=== PATIENT | female | born 1955 | race Caucasian/White ===

== ENCOUNTER 2019-03-06 17:25 | Emergency (ER) | payer OTHER ==
[2019-03-06 17:36] VITALS: BP 153/95
--- NOTE | 2019-03-06 17:53 | UC ---
Eye Complaint HPI - HPI Summary HPI Summary: 63-year-old woman comes in with a chief complaint of left eye irritation for 3 days. Patient's had some redness and discharge from the left eye for 3 days. Gradually gotten worse and now she is having pain on the left side of her face and a headache. Patient does feel mildly ill. Denies any rhinorrhea. - History of Current Complaint Chief Complaint: UCEye Stated Complaint: EYE COMPLAINT Time Seen by Provider: 03/06/19 17:41 Pain Intensity: 4 - Allergies/Home Medications Allergies/Adverse Reactions: Allergies Allergy/AdvReac Type Severity Reaction Status Date / Time Penicillins Allergy Rash Verified 03/06/19 17:37 PMH/Surg Hx/FS Hx/Imm Hx Previously Healthy: Yes - Surgical History Surgical History: Yes Surgery Procedure, Year, and Place: appy - Family History Known Family History: Positive: Non-Contributory - Social History Alcohol Use: Daily Substance Use Type: None Smoking Status (MU): Never Smoked Tobacco Review of Systems All Other Systems Reviewed And Are Negative: Yes Constitutional: Positive: Other - SEE HPI Skin: Positive: Other - SEE HPI Eyes: Positive: Other - SEE HPI ENT: Negative: Nasal Discharge Respiratory: Positive: Negative Cardiovascular: Positive: Negative Gastrointestinal: Positive: Negative Motor: Positive: Negative Neurovascular: Positive: Negative Musculoskeletal: Positive: Negative Neurological: Positive: Headache Psychological: Positive: Negative Is Patient Immunocompromised?: No Physical Exam Triage Information Reviewed: Yes Appearance: Well-Appearing, No Pain Distress, Well-Nourished Vital Signs: Initial Vital Signs Temp 99.4 F 03/06/19 17:31 Pulse 95 03/06/19 17:31 Resp 16 03/06/19 17:31 BP 153/95 03/06/19 17:31 Pulse Ox 99 03/06/19 17:31 Vital Signs Reviewed: Yes Eyes: Positive: Discharge, Other: - Left upper eyelid is swollen and mildly erythematous. PERRLA/EOMI, there is some tenderness to palpation over the maxillary sinus. ENT: Positive: Pharynx normal, TMs normal. Negative: Pharyngeal erythema, Nasal congestion Neck: Positive: Supple Respiratory: Positive: Lungs clear, Normal breath sounds, No respiratory distress Cardiovascular: Positive: RRR Musculoskeletal Exam: Normal Musculoskeletal: Positive: Strength Intact, ROM Intact Neurological: Positive: Alert, Muscle Tone Normal Psychological Exam: Normal Psychological: Positive: Age Appropriate Behavior Skin: Positive: Other - Mild erythema of the left upper eyelid Eye Complaint Course/Dx - Course Course Of Treatment: Go to treat the left upper eyelid stye with antibiotic drops and warm compresses. There is some redness in the upper eyelid and with the patient complaining of a headache and fullness of the left side of the head going to treat with doxycycline for possible cellulitis. At this time the patient does not have a fever and vital signs are stable. I did let her know that if she worsens she needs to get evaluation emergency department as infections around the eye can track into the brain. This was all discussed with the patient. - Differential Dx/Diagnosis Provider Diagnosis: Hordeolum of left eye, Conjunctivitis Discharge - Sign-Out/Discharge Documenting (check all that apply): Patient Departure All imaging exams completed and their final reports reviewed: No Studies - Discharge Plan Condition: Stable Disposition: HOME Prescriptions: DOXYcycline CAP(*) [DOXYcycline 100MG CAP(*)] 100 mg PO BID #20 cap Tobramycin 0.3% OPHTH.JOSE ALFREDO* 1 drop LEFT EYE Q4H #1 btl Patient Education Materials: Stye (ED), Orbital Cellulitis (ED), Conjunctivitis (ED) Referrals: Shahida Ulrich MD [Primary Care Provider] - Additional Instructions: FOLLOW UP WITH YOUR DOCTOR IF NOT COMPLETELY IMPROVED. GO TO THE EMERGENCY DEPARTMENT IF YOUR CONDITION WORSENS; PAIN, FEVER, YOU FEEL ILL OR ANY QUESTIONS OR CONCERNS. - Billing Disposition and Condition Condition: STABLE Disposition: Home
== END 2019-03-06 18:09 | disposition home or self-care (01) ==
LOC: UCEAST 17:25
DX: H00.014 Hordeolum externum left upper eyelid (principal); H10.9 Unspecified conjunctivitis; Z88.0 Allergy status to penicillin
CPT/HCPCS: 99212; G0463

== ENCOUNTER 2023-08-08 07:27 | Observation (INO) ==
[2023-08-08 07:56] LABS: ABS Basophils 0.1 10^3/uL (0.0-0.1); ABS Eosinophils 0.7 10^3/uL (0.0-0.5); ABS Lymphocytes 2.1 10^3/uL (1.0-4.8); ABS Monocytes 0.4 10^3/uL (0.0-0.9); ABS Neutrophils 2.8 10^3/uL (1.5-7.6); ABS Nucleated RBC 0.01 10^3/ul; Eosinophil % 11.9 %; Hematocrit 43.2 % (35-45); Hemoglobin 14.8 g/dL (11.5-14.3); Lymphocyte % 34.3 %; Mean Corpuscular Hemoglobin 31.4 pg (27-33); Mean Corpuscular Hgb Conc 34.3 g/dL (31-36); Mean Corpuscular Volume 91.3 fL (80-97); Mean Platelet Volume 8.2 fL (7.5-11.2); Nucleated Red Blood Cells % 0.2 %/100WBC (0.0-0.8); Platelet Count 215 10^3/uL (150-450); Red Blood Count 4.73 10^6/uL (3.63-4.92); Red Cell Distribution Width 13.6 % (12-17)
[2023-08-08 08:14] LABS: INR 0.94 (0.83-1.13)
[2023-08-08 08:26] LABS: Albumin 4.4 g/dL (3.2-5.2); Albumin/Globulin Ratio 1.7 (1-3); Calcium 9.4 mg/dL (8.6-10.3); Creatinine, Serum 0.92 mg/dL (0.51-0.95); Globulin 2.6 g/dL (2-4); Potassium 3.6 mmol/L (3.5-5.0); Total Bilirubin 0.6 mg/dL (0.2-1.0); eGFR CKD-EPI 67.4 (>60)
[2023-08-08 09:31] LABS: High Sensitivity Troponin 1 Hr 4 pg/mL (<15)
[2023-08-08 13:12] LABS: Magnesium 2.1 mg/dL (1.9-2.7)
[2023-08-09] MEDS ORDERED: Aminophylline 25 MG/ML VIAL ONE (09:01)
[2023-08-09] MEDS ORDERED: Regadenoson 0.4 MG/5 ML SYRINGE ONE (09:01)
[2023-08-09 11:40] VITALS: BP 130/73
== END 2023-08-09 15:03 | disposition home or self-care (01) ==
LOC: ED 07:27 → EDHOLD 07:27 → MEDTELE 12:05
PROVIDERS: ADMIT Internal Medicine; ATTEND Internal Medicine